=== PATIENT | female | born 1960 | race Caucasian/White ===

== ENCOUNTER 2017-12-07 06:28 | Emergency (ER) | payer OTHER ==
--- NOTE | 2017-12-07 07:10 | EDPHY ---
H & P Time Seen by Provider: 12/07/17 07:10 HPI/ROS: CHIEF COMPLAINT: "I have a UTI" HISTORY OF PRESENT ILLNESS: Patient is a 57-year-old female with a history of UT I. The patient presents emergency department stating that she has UTI since last Sunday. [facility] She [facility] treated with Macrobid twice a day x5 days. Her symptoms have not improved. She continues to have dysuria and frequency. No hematuria. She now has left back pain. She is worried that the infection went to her kidney. She has a history of IgA deficiency. She denies fevers or chills. No nausea or vomiting. No abdominal pain. REVIEW OF SYSTEMS: 10 systems were reveiwed and are negative with the exception of the elements mentioned in the history of present illness. Past Medical/Surgical History: Includes IgA deficiency Past surgical history: Orthopedic surgery Social history: The patient does not smoke Smoking Status: Never smoked Physical Exam: Vitals noted GENERAL: Well-appearing, in no acute distress, alert. HEENT: Eyes normal to inspection, normal pharynx, no signs of dehydration. NECK: Normal, supple. RESPIRATORY: Clear to auscultation bilaterally, no rales, rhonchi or wheezing. CVS: Regular rate and rhythm, no rubs, murmurs, or gallops. ABDOMEN: Soft, nontender, nondistended, no organomegaly. Benign BACK: Normal to inspection, no CVA tenderness. Patient points to her lower back as the location of her pain but she has no tenderness to palpation. SKIN: Normal color, no rash, warm, dry. No pallor. EXTREMITIES: No pedal edema, no calf tenderness, no joint swelling. NEURO/PSYCH: Alert and oriented, normal mood and affect Constitutional: Initial Vital Signs Temperature (C) 37.3 C 12/07/17 06:29 Heart Rate 94 12/07/17 06:29 Respiratory Rate 16 12/07/17 06:29 Blood Pressure 98/48 L 12/07/17 06:29 O2 Sat (%) 91 L 12/07/17 06:29 Allergies/Adverse Reactions: Penicillins Allergy (Verified 12/07/17 06:33) Sulfa (Sulfonamide Antibiotics) Allergy (Verified 12/07/17 06:33) Home Medications: Medication Instructions Recorded levOFLOXACIN [levAQUIN (*)] 500 mg PO DAILY 10 Days tab 12/07/17 Medical Decision Making ED Course/Re-evaluation: In the emergency department I discussed possible etiologies with the patient. I answered all her questions. Urine studies and test were ordered. Patient's urine studies showed positive white cells, trace bacteria and trace leuk esterase. These could indicate urinary tract infection. Urine culture is pending. Patient does not have any CVA tenderness or back tenderness on exam. There was no blood in the urine. She does not seem septic or toxic. I do not think the patient needs CT imaging at this time. The patient will be given Levaquin orally. The patient has previously taken Macrobid. She has an allergy to penicillin and sulfa medication. She was given the 1st dose in the emergency department. She was given a prescription for 10 days. She will follow up with primary care physician provided. She was given warnings prior to leaving. Differential Diagnosis: My differential includes but is not limited to urinary tract infection, pyelonephritis, bacteremia, sepsis, kidney stone, disc herniation, low back pain , hematoma, mass - Data Points Laboratory Results: 12/07/17 12/07/17 12/07/17 Unknown Unknown 06:00 Urine Color CLAUDINE Urine Appearance HAZY Urine pH 5.0 (5.0-7.5) Ur Specific [place] 1.025 (1.002-1.030) Urine Protein 1+ H (NEGATIVE) Urine Ketones NEGATIVE (NEGATIVE) Urine Blood NEGATIVE (NEGATIVE) Urine Nitrate NEGATIVE (NEGATIVE) Urine Bilirubin NEGATIVE (NEGATIVE) Urine Urobilinogen 2.0 EU H EU (0.2-1.0) Ur Leukocyte Esterase TRACE H (NEGATIVE) Urine RBC 1-3 /hpf /hpf 1-3 /hpf /hpf (0-3) (0-3) Urine WBC 5-10 /hpf H /hpf 5-10 /hpf H /hpf (0-3) (0-3) Ur Epithelial Cells TRACE /lpf /lpf TRACE /lpf /lpf (NONE-1+) (NONE-1+) Urine Bacteria TRACE /hpf H /hpf (NONE SEEN) Urine Mucus 2+ /lpf H /lpf 3+ /lpf H /lpf (NONE-1+) (NONE-1+) Urine Glucose NEGATIVE (NEGATIVE) Urine Test NEGATIVE Departure - Departure Disposition: Home, Routine, Self-Care Clinical Impression: Urinary tract infection Qualifiers: Urinary tract infection type: acute cystitis Hematuria presence: with hematuria Qualified Code(s): N30.01 - Acute cystitis with hematuria Condition: Good Instructions: Urinary Tract Infection in Women (ED) Additional Instructions: Take your entire course of antibiotics. Return sooner with increased pain, fever, vomiting or any other concerns. You can see your primary doctor in [place]. You have also been given contact for the on-call physician today, Dr. Cordero. I also gave the Dr. Cantu phone number. Referrals: NING MARADIAGA [Other] - 2-3 days, if not improved Leeann Cantu MD [Medical Doctor] - As per Instructions Amalia Cordero MD [Medical Doctor] - 3-4 days, if not improved Prescriptions: levOFLOXACIN [levAQUIN (*)] 500 mg PO DAILY 10 Days tab
[2017-12-07 07:55] VITALS: BP 93/52
== END 2017-12-07 08:02 | disposition home or self-care (01) ==
DX: N30.01 Acute cystitis with hematuria (principal)